=== PATIENT | male | born 1960 | race Caucasian/White ===

== ENCOUNTER 2016-11-12 21:08 | Emergency (ER) | payer BC ==
--- NOTE | 2016-11-12 21:18 | ED ---
ENT HPI - General Chief complaint: ENT Stated complaint: L ear pain Time Seen by Provider: 11/12/16 21:17 Source: patient, family, RN notes reviewed, old records reviewed Mode of arrival: ambulatory Limitations: no limitations - History of Present Illness Initial comments: Patient is a 56 year old male with CC of left ear pain and fullness since Sunday night. Patient reports like he try to use some water to flush his ears but nothing would go in it. Patient states that he has decreased hearing in his left ear. He denies using any Q-tips or anything to clean out his ears recently. Patient states that he's thinks that he might be full of wax. He states this is very uncomfortable and feels pain reading from the ear towards his jaw. Patient denies any fever or chills. Denies any history of sick contacts or sore throat. - Related Data Previous Rx's Medication Instructions Recorded Amoxic-Pot Clav 875-125Mg 1 tab PO Q12HR #20 tablet 11/12/16 [Augmentin 875-125] Ciprofloxacin Ophth Soln [Ciloxan 10 drops LEFT EAR BID #1 bottle 11/12/16 0.3% Ophth Soln] Allergies Allergy/AdvReac Type Severity Reaction Status Date / Time Iodine and Iodide Containing Allergy Rash/Hives Verified 11/12/16 21:16 Produc Review of Systems ROS Statement: Those systems with pertinent positive or pertinent negative responses have been documented in the HPI. ROS Other: All systems not noted in ROS Statement are negative. Past Medical History Past Medical History: Hypertension History of Any Multi-Drug Resistant Organisms: None Reported Past Surgical History: Orthopedic Surgery, Tonsillectomy Past Psychological History: No Psychological Hx Reported Smoking Status: Never smoker Past Alcohol Use History: None Reported Past Drug Use History: None Reported General Exam - General Exam Comments Initial Comments: this is a 56-year-old male. No acute distress. Limitations: no limitations General appearance: alert, in no apparent distress Head exam: Present: atraumatic Eye exam: Present: normal appearance, PERRL, EOMI. Absent: scleral icterus, conjunctival injection, periorbital swelling ENT exam: Present: normal exam, mucous membranes moist. Absent: TM's normal bilaterally (Left ear canal full of cerumen. Unable to visualize TM. ) Neck exam: Present: normal inspection. Absent: tenderness, meningismus, lymphadenopathy Respiratory exam: Present: normal lung sounds bilaterally. Absent: respiratory distress, wheezes, rales, rhonchi, stridor Cardiovascular Exam: Present: regular rate, normal rhythm, normal heart sounds. Absent: systolic murmur, diastolic murmur, rubs, gallop, clicks GI/Abdominal exam: Present: soft, normal bowel sounds. Absent: distended, tenderness, guarding, rebound, rigid Extremities exam: Present: normal inspection, full ROM, normal capillary refill. Absent: tenderness, pedal edema, joint swelling, calf tenderness Back exam: Present: normal inspection Neurological exam: Present: alert, oriented X3, CN II-XII intact Psychiatric exam: Present: normal affect, normal mood Skin exam: Present: warm, dry, intact, normal color. Absent: rash Course Vital Signs 11/12/16 11/12/16 21:12 22:19 Temperature 97.7 F 98.2 F Pulse Rate 72 80 Respiratory 18 20 Rate Blood Pressure 162/92 150/85 O2 Sat by Pulse 99 98 Oximetry Procedures - Ear Wax Removal Left Ear Cerumenolytic Used: Cerumenex Ear Canal Irrigated by: other (PA) Ear Canal Irrigated With: warm saline using syringe/angiocath Ear Canal(s) Curetted: plastic scoops, plastic loops Results: Re-examined: some cerumen remains TM Visible: TM(s) intact, normal appearance Patient Tolerated Procedure: well, no complications Complications: no problems Medical Decision Making - Medical Decision Making Patient is a 56 year old male with CC of left ear pain and fullness since Sunday night. Patient reports like he try to use some water to flush his ears but nothing would go in it. Patient states that he has decreased hearing in his left ear. He denies using any Q-tips or anything to clean out his ears recently. Patient does have impacted left ear cerumen. Patient ear was irrigead and cerumex was used prior. Patient ear canal cerumen was partially removed. Patient has some irritation over ear canal, patient started on ciprofloxacin drops, as well as augmentin. Patient advised to follow up with ENT. Return parameters discussed. Disposition Clinical Impression: Left ear impacted cerumen, Left otitis externa Disposition: HOME SELF-CARE Instructions: Otitis Externa (ED), Cerumen Impaction (ED) Additional Instructions: patient advised to apply the antibiotic drops to the ear twice a day. Patient should take antibiotic prescription as directed. Follow-up with an ear nose and throat doctor. Return to the emergency department if any alarming signs or symptoms occur. Prescriptions: Amoxic-Pot Clav 875-125Mg [Augmentin 875-125] 1 tab PO Q12HR #20 tablet Ciprofloxacin Ophth Soln [Ciloxan 0.3% Ophth Soln] 10 drops LEFT EAR BID #1 bottle Referrals: Nonstaff,Physician [Primary Care Provider] - 1-2 days Time of Disposition: 22:10
[2016-11-12] MEDS ORDERED: CARBAMIDE PEROXIDE 6.5% DROPS 15 ML BTL BOTH EARS STA (21:24)
[2016-11-12] MEDS ORDERED: CIPROFLOXACIN 0.3% OPHTH SOLN 5 ML BTL BOTH EYES STA (21:51)
[2016-11-12] MEDS ORDERED: AMOXIC-POT CLAV 875MG STARTER 2 EACH TABLET PO STA (22:12)
[2016-11-12 22:20] VITALS: BP 150/85; PULSE 80; RESP 20; TEMP 98.2
== END 2016-11-12 22:19 | disposition home or self-care (01) ==
LOC: EC 21:08
DX: H61.22 Impacted cerumen, left ear (principal); H60.92 Unspecified otitis externa, left ear; Z88.8 Allergy status to other drugs, medicaments and biological substances
CPT/HCPCS: 99283